=== PATIENT | female | born 1975 | race Caucasian/White ===

== ENCOUNTER 2017-07-12 09:55 | Outpatient (CLI) | payer MEDICARE, MEDICAID ==
--- NOTE | 2017-07-12 11:48 | ULT ---
BILATERAL RENAL ULTRASOUND: Date: 07/12/17 HISTORY: Neuropathic bladder. FINDINGS: The right kidney measures 9.9 cm in length and the left kidney measures 7.7 cm in length. No mass o r hydronephrosis seen on either side. A Eaton catheter is present in the urinary bladder. IMPRESSION: No evidence of high grade obstruction. POS: [facility]
--- NOTE | 2017-07-12 12:21 | RAD ---
ABDOMEN ONE VIEW: HISTORY: Reflex neuropathic bladder. COMPARISON: CT from 04/26/2017. FINDINGS: A suprapubic catheter is in place. Multiple catheters project over the hemiabdomen. There are old bilateral femoral neck/anterior trochanteric fractures. IMPRESSION: 1. No abnormal calcifications seen projecting over the renal shadows. 2. Recently described 3 mm calculus, superior pole, left kidney, not well defined on today's examin ation. POS: OFF
== END 2017-07-12 09:56 | disposition home or self-care (01) ==
LOC: ULT 09:55
PROVIDERS: ATTEND Urology
DX: N31.1 Reflex neuropathic bladder, not elsewhere classified (principal); N20.0 Calculus of kidney
CPT/HCPCS: 74000; 76770

== ENCOUNTER 2018-02-21 10:47 | Outpatient (CLI) | payer MEDICARE, MEDICAID ==
[2018-02-21 11:36] LABS: Anion Gap 13 mmol/L (10-20); BUN (Urea Nitrogen) 5 mg/dL (7.0-18.7); Calc. Creatinine Clearance 0 mL/min (70-130); Calcium 8.6 mg/dL (7.8-10.44); Carbon Dioxide 24 mmol/L (22-29); Chloride 103 mmol/L (98-107); Estimated GFR-MDRD Greater than 90; Glucose 76 mg/dL (70-105); Sodium 136 mmol/L (136-145)
--- NOTE | 2018-02-21 12:46 | RAD ---
KUB: INDICATIONS: Renal stone. FINDINGS: A ventriculoperitoneal catheter and a suprapubic catheter are again noted. The bowel gas pattern is unobstructed. No suspicious calcification is evident. Chronic osseous deformities involving the low er lumbar spine, upper sacrum, and both hips are similar appearing. IMPRESSION: No suspicious calcifications. POS: [facility]
--- NOTE | 2018-02-21 13:19 | ULT ---
RENAL SONOGRAM: DATE: 02/21/18. HISTORY: Neurogenic bladder, ureteral reflux. FINDINGS: Portions of the left kidney are not well seen due to shadowing from adjacent ribs. There is a 0.5 cm calcification seen in the mid portion left kidney which may actually be cortically based as opposed to a calcification in the renal collecting system. Nevertheless, this does represent a nonobstructin g calcification measuring 0.5 cm. No additional renal calculus is seen. There is no renal mass, hyd ronephrosis, or perinephric fluid collection seen bilaterally. The right kidney measures 9.9 cm x 5.5 cm and the left kidney measures 8.7 cm x 4.3 cm. Eaton catheter is again present in a decompressed urinary bladder. IMPRESSION: 1. Calcification mid portion left kidney which may represent a cortically based calcification as opp osed to nonobstructing renal calculus. There is no hydronephrosis seen bilaterally. 2. Eaton catheter in the urinary bladder. 3. Renal cortical thickness is borderline diminished involving the right kidney. POS: [facility]
== END 2018-02-21 10:48 | disposition home or self-care (01) ==
LOC: SCSULT 10:47
PROVIDERS: ATTEND Urology
DX: N31.1 Reflex neuropathic bladder, not elsewhere classified (principal); N20.0 Calculus of kidney
CPT/HCPCS: 36415; 74018; 76770; 80048

== ENCOUNTER 2018-07-31 12:29 | Outpatient (CLI) | payer MEDICARE, MEDICAID ==
--- NOTE | 2018-07-31 16:38 | NM ---
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 TECHNIQUE: 25 mg of Lasix injected IV 15 minutes prior to imaging. IV injection of 8.5 mCi technetium-99m MAG-3. Counts obtained over the bilateral kidneys. Data used to plot time-activity curves. FINDINGS: Dynamic scintigraphic images demonstrate that the left kidney is smaller than the right. The later im ages demonstrate a round filling defect in the center of the urinary bladder. This filling defect may represent the balloon of the patient's suprapubic catheter. Split renal function: Left 24%, right 76%. Eawv-jv-forv: Left 2.3 minutes, right 1.9 minutes. Halftime from peak: Left 6.0 minutes, right 3.8 minutes. On the time-activity curve, the right kidney has much higher peak than the left, but both have peak t imes that are similar to each other, and both demonstrate washout curves. IMPRESSION: 1. Left kidney is smaller than the right, and therefore has lower percentage of the split renal func tion than the right. 2. Otherwise, the sijd-yj-mphs and washout of peak are bilaterally within normal limits. 3. Suprapubic catheter. POS: [facility]
== END 2018-07-31 12:30 | disposition home or self-care (01) ==
LOC: NM 12:29
PROVIDERS: ATTEND Urology
DX: N31.1 Reflex neuropathic bladder, not elsewhere classified (principal); N27.0 Small kidney, unilateral; Z96.0 Presence of urogenital implants
CPT/HCPCS: 78708; A4641; A9562

== ENCOUNTER 2018-10-31 14:02 | Outpatient (CLI) | payer MEDICARE, MEDICAID ==
--- NOTE | 2018-10-31 16:47 | ULT ---
RIGHT BREAST ULTRASOUND LIMITED: 10/31/18 HISTORY: 42-year-old female who presents for evaluation of a palpable finding in the upper outer right breast. There is a densely calcified [employer]ATION [employer]EM[employer] shunt tube noted within the 9 o'clock region of the right breast whic h is very superficially located and does account for a focal palpable abnormality at this location. N o evidence for other solid or solid mass. IMPRESSION: BIRADS 2: Benign Finding(s) Routine annual screening mammography (for women over age 40). A palpable finding at 9 o'clock appears to correspond to a superficial calcified SOL[employer]ATION [employer]EM[employer] shunt tube. POS: OFF
== END 2018-10-31 14:03 | disposition home or self-care (01) ==
LOC: BICMAMMO 14:02
PROVIDERS: ATTEND Family Medicine
DX: N63.10 Unspecified lump in the right breast, unspecified quadrant (principal); N64.89 Other specified disorders of breast; R92.1 Mammographic calcification found on diagnostic imaging of breast
CPT/HCPCS: 76642; 77066; G0279

== ENCOUNTER 2019-03-05 08:52 | Outpatient (CLI) | payer MEDICARE, MEDICAID ==
--- NOTE | 2019-03-05 09:55 | CT ---
CT Stone Protocol 03/05/2019 12:00 AM HISTORY: Neurogenic bladder and history of renal calculi. Ventricular peritoneal shunt in place. COMPARISON: 04/26/2017 Technique: Multiple contiguous axial CT images are obtained through the abdomen and pelvis without IV contrast. Coronal reformats are provided. FINDINGS: This examination is limited for the evaluation of solid organs and vascular structures due to the lac k of intravenous contrast. Lower Chest: A stable noncalcified 4 mm pulmonary nodule is seen at the posterior right lung base. Veronique ng bases are otherwise clear. Abdomen: Liver: within normal limits. Gallbladder: Within normal limits for CT imaging. Pancreas: within normal limits. Spleen: Subcentimeter low-density focus seen in the central aspect body of the spleen. This may be at tributable to vascular structures as this is near the region of the hilum. This is stable compared to prior study. Adrenals: within normal limits. Kidneys: Again noted is atrophy of the left kidney with several nonobstructing left renal calculi pre sent measuring 2 to 3 mm. Approximately 3 mm nonobstructing calculus is seen in the superior pole right kidney. No hydronephrosis is present. Ureters: No ureteral calculus is seen.. Pelvis: Urinary bladder: A suprapubic catheter is present in a decompressed urinary bladder. There is increas ed density material adjacent to the distal portion of the catheter as well as the balloon. This is likely related to formation of calcification along the balloon of the suprapubic catheter. This was n ot present on prior study. Reproductive Organs: The uterus and adnexal structures demonstrate a grossly normal nonenhanced CT ap pearance. Lymph Nodes: No enlarged lymph nodes. Bowel: Normal caliber. Appendix: The appendix is normal in caliber. Peritoneum: Small amount of free fluid is seen in the cul-de-sac. Ventriculoperitoneal shunt catheters enter the epigastric region and are stable in position compared to prior exam. Retroperitoneum: within normal limits. Vessels: Abdominal aorta is normal in caliber.. Abdominal Wall: within normal limits. Bones: There are midline defects in the lower lumbar spine related to patient's history of spina bifi da with dysplastic changes of the bilateral hips also stable compared to prior study.. IMPRESSION: 1. Stable atrophy of the left kidney with multiple nonobstructing left renal calculi. Previously note d left hydronephrosis is not present on this exam. 2. Single nonobstructing calculus superior pole right kidney. 3. Stable too small to characterize 4 mm pulmonary nodule right lung base. 4. Calcifications adjacent to the distal portion of the suprapubic catheter and adjacent to the ballo on on the suprapubic catheter. 5. Tiny amount of free fluid in the pelvis.
== END 2019-03-05 08:53 | disposition home or self-care (01) ==
LOC: CT 08:52
PROVIDERS: ATTEND Urology
DX: N31.1 Reflex neuropathic bladder, not elsewhere classified (principal); N20.0 Calculus of kidney; N26.1 Atrophy of kidney (terminal); R91.1 Solitary pulmonary nodule; N28.89 Other specified disorders of kidney and ureter
CPT/HCPCS: 74176

== ENCOUNTER 2019-03-29 01:43 | Outpatient (CLI) | payer MEDICARE, MEDICAID ==
[2019-03-29 14:25] LABS: Bilirubin Negative (Negative); Blood, Urine Small (Negative); Clarity CLEAR (Clear); Glucose, Urine (Dipstick) Negative (Negative); Leukocyte Large (Negative); Nitrite Negative (Negative); Protein, Urine (Dipstick) Negative (Neg-Trace); Specific Gravity, Urine 1.003 (1.002-1.036); Urobilinogen 0.2 mg/dL (0.2-1.0)
[2019-03-29 14:31] LABS: Pathc Cast-AUWi Flag 0.13 (0-2.49)
[2019-03-29 14:52] LABS: RBC/HPF 0-3 HPF (0-3)
[2019-03-29 14:53] LABS: Bacteria/HPF 1+ HPF (None Seen); Hyaline Casts/LPF NONE SEEN LPF (0-3 Hyaline); Squamous Epithelial 0-3 HPF (0-3)
[2019-03-29 16:07] LABS: Hemoglobin 14.1 g/dL (12.0-16.0); Mean Corpuscular HGB CONC 33.2 g/dL (32.0-36.0); Mean Corpuscular Hemoglobin 32.4 pg (27.0-31.0); Mean Corpuscular Volume 97.6 fL (78.0-98.0); Mean Platelet Volume 8.5 fL (7.4-10.4); Platelet Count 299 thou/uL (130-400); RBC Distribution Width 11.9 % (11.5-14.5); Red Blood Cell (RBC) Count 4.34 mill/uL (4.20-5.40); White Blood Cell (WBC) Count 7.7 thou/uL (4.8-10.8)
[2019-03-29 16:13] LABS: PTT 36.5 SEC (22.9-36.1); Prothrombin Time 13.6 SEC (12.0-14.7)
[2019-03-29 16:38] LABS: Anion Gap 14 mmol/L (10-20); BUN (Urea Nitrogen) 8 mg/dL (7.0-18.7); Calc. Creatinine Clearance 0 mL/min (70-130); Calcium 9.5 mg/dL (7.8-10.44); Carbon Dioxide 20 mmol/L (22-29); Chloride 105 mmol/L (98-107); Estimated GFR-MDRD Greater than 90; Potassium 4.3 mmol/L (3.5-5.1); Sodium 135 mmol/L (136-145)
[2019-03-29 16:54] LABS: Glucose 59 mg/dL (70-105)
--- NOTE | 2019-03-30 21:25 | EKG ---
Test Reason : Blood Pressure : / mmHG Vent. Rate : 093 BPM Atrial Rate : 093 BPM P-R Int : 134 ms QRS Dur : 080 ms QT Int : 368 ms P-R-T Axes : 074 067 038 degrees QTc Int : 457 ms Normal sinus rhythm Normal ECG No previous ECGs available Confirmed by Ludwin GUZMAN ([id number]) on 03/30/2019 9:25:10 PM Referred By: [email or web address] Confirmed By:Ludwin GUZMAN
== END 2019-03-29 01:44 | disposition home or self-care (01) ==
LOC: LABBT 01:43
PROVIDERS: ATTEND Urology
DX: N21.0 Calculus in bladder (principal); N31.9 Neuromuscular dysfunction of bladder, unspecified
CPT/HCPCS: 80048; 81001; 85027; 85610; 85730; 87086; 93005; 93010

== ENCOUNTER 2019-04-11 05:55 | Day surgery (SDC) | payer MEDICARE, MEDICAID ==
[2019-04-11] MEDS ORDERED: Levofloxacin 500 mg/D5W 100 ml Premix Bag ONE (06:50)
[2019-04-11] MEDS ORDERED: Iothalamate Meglumine 60% 50 ML VIAL FS ONE (06:57)
[2019-04-11] MEDS ORDERED: Fentanyl 100 MCG/2 ML VIAL ONE (07:18)
[2019-04-11] MEDS ORDERED: Hyoscyamine Sulfate SL 0.125 mg Tablet ONE (07:42)
--- NOTE | 2019-04-11 07:47 | RAD ---
EXAM: Single view of the abdomen HISTORY: Preoperative radiograph. Nephrolithiasis. COMPARISON: None FINDINGS: Single view of the abdomen shows a nonspecific, nonobstructive bowel gas pattern. No suspi cious calcifications are seen. An abnormal shape of the bones of the pelvis, hips, and lower spine/sacrum is secondary the patient's spina bifida. IMPRESSION: No evidence of obstruction or visualized renal calculi
--- NOTE | 2019-04-11 08:34 | RAD ---
EXAM: XR IVP Retrograde PROVIDED CLINICAL HISTORY: Dysfunction urinary bladder, feeling of incomplete emptying. COMPARISON: CT abdomen and pelvis on 03/05/2019. FINDINGS/IMPRESSION: 2 views from left retrograde urogram are submitted for interpretation. Visualized ureter demonstrates no filling defects or dilatation. There is no hydronephrosis seen. Few tiny filling defects are seen within calyces of the left kidney which may represent filling defects secondary to renal calculi which were noted on prior CT exam. Correlation with intraoperative findings is recommended.
[2019-04-11] MEDS ORDERED: Acetaminophen 650 MG/20.3 ML UDCUP ONE (09:53)
--- NOTE | 2019-04-11 10:36 | OP ---
DATE OF PROCEDURE: 04/11/2019 PRIMARY CARE PHYSICIAN: Cedrick Acuña MD PREOPERATIVE DIAGNOSES: 1. A 43-year-old female with history of myelomeningocele, neurogenic bladder with chronic suprapubic tube. 2. History of nonobstructing bilateral renal calculi: Right upper pole punctate, left nonobstructing renal calculi x5 punctate 2 to 3 mm in the largest dimension. 3. Bladder stone, largest dimension measuring approximately 2.2 cm, chronic suprapubic tube. POSTOPERATIVE DIAGNOSES: 1. A 43-year-old female with history of myelomeningocele, neurogenic bladder with chronic suprapubic tube. 2. History of nonobstructing bilateral renal calculi: Right upper pole punctate, left nonobstructing renal calculi x5 punctate 2 to 3 mm in the largest dimension. 3. Bladder stone, largest dimension measuring approximately 2.2 cm, chronic suprapubic tube. PROCEDURES PERFORMED: Cystoscopy, left retrograde pyelogram, bladder biopsy, fulguration of biopsy site, laser lithotripsy of bladder stone, evacuation of bladder stone fragments, suprapubic tube exchange, 22-Icelandic 30 mL attached to gravity leg bag. ANESTHESIA: LMA. COMPLICATIONS: None apparent. DISPOSITION: To recovery room in stable condition. SPECIMENS: 1. Bladder biopsy. 2. Bladder stone for chemical analysis. INDICATIONS FOR PROCEDURE AND HISTORY: Eugenia is a 43-year-old female with history of myelomeningocele, spina bifida, developmental delay, who has a chronic SP tube status due to neurogenic bladder. Her SP tube is changed every [address] demonstrated bladder stones, kidney stones as above, and presents today for evacuation of bladder stones. Indications, risks, and complications were reviewed with the patient and mother and family in detail. She desires to proceed. DESCRIPTION OF PROCEDURE: After an informed consent was signed, the patient was taken to the operating room, placed in dorsal lithotomy position with the genital area prepped and draped in the usual surgical sterile fashion. The pre-existing SP tube was removed and a new 22-Icelandic 30 mL SP tube was placed with sterile water. This was plugged while undergoing laser lithotripsy of bladder stone. A 21-Icelandic cystoscope was utilized for cystoscopy, which demonstrated bladder mucosa with intermittent areas of inflammation consistent with chronic SP tube. Bladder stone fragments were seen in the dependent portion of the bladder. At the level of the posterior wall, there was a mucosal defect as previously noted. It was somewhat attenuated. This area had surrounding inflammatory mucosa. We first performed a retrograde pyelogram on the left side and there was no evidence of hydronephrosis or filling defect. Prompt excretion of contrast was noted. At this time, we did transition to treating her bladder stone. Laser lithotripsy using 550 micron laser fiber, but dust setting was utilized to fragment the bladder stone debris. Using an Ellik evacuator, we evacuated the bladder stone debris with resolution of all fragments. There was some adherent stone debris in the mucosa of the posterior wall with inflammatory component, which we extracted with biopsy forceps. Due to the inflammatory changes of the posterior wall and a chronic SP tube status, I did biopsy the bladder mucosa. A cold cup biopsy was utilized and the biopsy site was fulgurated with endoscopic Bugbee with good hemostasis. As previously noted on cystoscopy, she does have a small mucosal defect posterior wall with inflammatory changes. Previous biopsy of the site was negative. Clear output from the SP tube was noted and transported to the recovery room in stable condition. She was discharged with ciprofloxacin for 5 days and we will continue her Levsin sublingual. She will see me in 4-week interval on May 10 at 10:15 for interval suprapubic tube exchange. She was on vitamin C and vitamin D. We will have her hold her vitamin C for now and plan to proceed with a stone metabolic panel at a later date. Job ID: [id number]
== END 2019-04-11 10:29 | disposition home or self-care (01) ==
LOC: SDC 05:55
PROVIDERS: ATTEND Urology
PROC: 0TCB8ZZ Extirpation of Matter from Bladder, Via Natural or Artificial Opening Endoscopic (ICD-10-PCS; principal; 2019-04-11)
PROC: 0TBB8ZX Excision of Bladder, Via Natural or Artificial Opening Endoscopic, Diagnostic (ICD-10-PCS; 2019-04-11)
PROC: 0T2BX0Z Change Drainage Device in Bladder, External Approach (ICD-10-PCS; 2019-04-11)
DX: N21.0 Calculus in bladder (principal); N30.00 Acute cystitis without hematuria; N30.20 Other chronic cystitis without hematuria; N31.9 Neuromuscular dysfunction of bladder, unspecified; K21.9 Gastro-esophageal reflux disease without esophagitis; F79 Unspecified intellectual disabilities; M19.90 Unspecified osteoarthritis, unspecified site; Z43.5 Encounter for attention to cystostomy; Z87.442 Personal history of urinary calculi; Z87.798 Personal history of other (corrected) congenital malformations; Z98.890 Other specified postprocedural states; Z91.048 Other nonmedicinal substance allergy status; Z91.018 Allergy to other foods; Z88.2 Allergy status to sulfonamides; Z88.8 Allergy status to other drugs, medicaments and biological substances; Z88.1 Allergy status to other antibiotic agents; Z79.899 Other long term (current) drug therapy
CPT/HCPCS: 74018; 74420; 82365; 88300; 88305; C1758; C1769; J1956; J3010

== ENCOUNTER 2019-09-14 13:22 | Outpatient (CLI) | payer MEDICARE, MEDICAID ==
[2019-09-14 13:59] LABS: Anion Gap 15 mmol/L (10-20); BUN (Urea Nitrogen) 5 mg/dL (7.0-18.7); Calc. Creatinine Clearance 0 mL/min (70-130); Calcium 9.7 mg/dL (7.8-10.44); Carbon Dioxide 25 mmol/L (22-29); Chloride 104 mmol/L (98-107); Estimated GFR-MDRD Greater than 90; Glucose 84 mg/dL (70-105); Sodium 140 mmol/L (136-145); Uric Acid 5.8 mg/dL (2.6-6.0)
--- NOTE | 2019-09-14 14:13 | RAD ---
SUPINE ABDOMEN: HISTORY: Bladder calculus. COMPARISON: 04/11/2019. FINDINGS/IMPRESSION: Bowel gas pattern unremarkable. No urinary tract calculus identified. There is no evidence of bladd er calculus identified. POS: OFF
== END 2019-09-14 13:23 | disposition home or self-care (01) ==
LOC: SCSRAD 13:22
PROVIDERS: ATTEND Urology
DX: N31.9 Neuromuscular dysfunction of bladder, unspecified (principal); N21.0 Calculus in bladder; N25.89 Other disorders resulting from impaired renal tubular function
CPT/HCPCS: 36415; 74018; 80048; 83970; 84550

== ENCOUNTER 2019-12-10 12:45 | Outpatient (CLI) | payer MEDICARE, MEDICAID ==
--- NOTE | 2019-12-10 14:23 | ULT ---
US Renal Bilateral STANDARD: 12/10/2019 12:00 AM CLINICAL HISTORY: Chronic kidney disease. STUDY: Renal ultrasound COMPARISON: 02/21/2018 FINDINGS: Right kidney: Echogenicity: Normal. Masses/cysts: None. Hydronephrosis: None. Calcifications: None. Length: 10.5 cm Left kidney: Echogenicity: Normal. Masses/cysts: None. Hydronephrosis: None. Calcifications: 2 calcifications measuring up to 5 mm in size. Length: 8.3 cm Limited visualization of the urinary bladder is unremarkable. IMPRESSION: Nonobstructing left renal calcifications.
--- NOTE | 2019-12-10 14:55 | RAD ---
EXAM: Single view of the abdomen HISTORY: Neuromuscular dysfunction of the bladder. Kidney stones. COMPARISON: 09/14/2019 FINDINGS: Single view of the abdomen shows a nonspecific, nonobstructive bowel gas pattern. No suspi cious calcifications are seen. There is spina bifida. IMPRESSION: No urinary collecting system calculi are identified.
== END 2019-12-10 12:46 | disposition home or self-care (01) ==
LOC: ULT 12:45
PROVIDERS: ATTEND Urology
DX: N20.0 Calculus of kidney (principal); N31.9 Neuromuscular dysfunction of bladder, unspecified; N21.0 Calculus in bladder; N28.89 Other specified disorders of kidney and ureter
CPT/HCPCS: 74018; 76770

== ENCOUNTER 2020-03-25 11:00 | Outpatient (CLI) | payer MEDICARE, MEDICAID ==
--- NOTE | 2020-03-25 20:18 | CT ---
CT ABDOMEN AND PELVIS WITHOUT IV CONTRAST: 03/25/20 INDICATIONS: Renal calculi. Comparison made to prior CT abdomen and pelvis dated 03/05/19. FINDINGS: The lung bases are clear. Liver, spleen, and pancreas unremarkable for an unenhanced study. Adrenal glands appear unremarkable and stable. Review of kidneys showed no evidence of hydronephrosis. Mild left cortical atrophy again noted. There are three or four tiny calculi in the upper collecting structures of the left kidney measuring in th e 2 mm range. Probable tiny calculus in the lower pole collecting structures of the left kidney. No d efinite calculus seen in the collecting structures of the right kidney. There is no hydronephrosis. T he ureters are unremarkable. Urinary bladder is contracted. A suprapubic catheter is again noted. Calcifications along the cathete r described previously are no longer present. Small and large bowel appear unremarkable. Aorta normal caliber. No free fluid. Images through the pelvis show unremarkable uterus and adnexa, stable. 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 IMPRESSION: 1. Tiny nonobstructing calculi in the upper collecting structures of the left kidney as describe d. No hydronephrosis or ureteral obstruction. The suprapubic catheter is in place and the urinary zackary dder is contracted. POS: [facility]
== END 2020-03-25 11:01 | disposition home or self-care (01) ==
LOC: SCSCT 11:00
PROVIDERS: ATTEND Urology
DX: N20.0 Calculus of kidney (principal); N31.9 Neuromuscular dysfunction of bladder, unspecified; N32.89 Other specified disorders of bladder; Z96.0 Presence of urogenital implants; Z87.448 Personal history of other diseases of urinary system
CPT/HCPCS: 74176

== ENCOUNTER 2021-01-01 12:34 | Outpatient (CLI) | payer MEDICARE, MEDICAID ==
[~2021-01-01 12:34] MED LIST: Furosemide 40 MG/4 ML VIAL ONE
== END 2021-01-01 12:35 | disposition home or self-care (01) ==
LOC: NM 12:34
PROVIDERS: ATTEND Urology
DX: N20.0 Calculus of kidney (principal); N31.1 Reflex neuropathic bladder, not elsewhere classified; R39.14 Feeling of incomplete bladder emptying; R93.421 Abnormal radiologic findings on diagnostic imaging of right kidney; R93.422 Abnormal radiologic findings on diagnostic imaging of left kidney; M21.852 Other specified acquired deformities of left thigh; M21.851 Other specified acquired deformities of right thigh; R94.4 Abnormal results of kidney function studies
CPT/HCPCS: 74018; 76770; 78708; A4641; A9562; J1940

== ENCOUNTER 2022-03-01 10:25 | Outpatient (CLI) | payer MEDICARE, OTHER | END 2022-03-01 10:26 | disposition home or self-care (01) | LOC: NM 10:25 | PROVIDERS: ATTEND Urology | DX: N20.0 Calculus of kidney (principal); N31.9 Neuromuscular dysfunction of bladder, unspecified; R39.14 Feeling of incomplete bladder emptying; N27.0 Small kidney, unilateral; N28.89 Other specified disorders of kidney and ureter | CPT/HCPCS: 74018; 76770; 78708; A4641; A9562 ==

== ENCOUNTER 2024-04-09 11:34 | Outpatient (CLI) | payer MEDICARE, OTHER | END 2024-04-09 11:35 | disposition home or self-care (01) | LOC: CT 11:34 | PROVIDERS: ATTEND Urology | DX: Z43.5 Encounter for attention to cystostomy (principal); N31.9 Neuromuscular dysfunction of bladder, unspecified; N20.0 Calculus of kidney; G80.9 Cerebral palsy, unspecified; N83.202 Unspecified ovarian cyst, left side | CPT/HCPCS: 74176; 78708; A4641; A9562; 36415; 80048 ==

== ENCOUNTER 2025-06-06 12:34 | Outpatient (CLI) | payer MEDICARE, OTHER | END 2025-06-06 12:35 | disposition home or self-care (01) | LOC: CT 12:34 | PROVIDERS: ATTEND Urology | DX: N31.9 Neuromuscular dysfunction of bladder, unspecified (principal); N20.0 Calculus of kidney; R91.1 Solitary pulmonary nodule; R93.2 Abnormal findings on diagnostic imaging of liver and biliary tract; N83.8 Other noninflammatory disorders of ovary, fallopian tube and broad ligament; K44.9 Diaphragmatic hernia without obstruction or gangrene; Z98.1 Arthrodesis status; Z96.0 Presence of urogenital implants; Z98.2 Presence of cerebrospinal fluid drainage device | CPT/HCPCS: 74176 ==